=== PATIENT | female | born 1950 | race Caucasian/White ===

== ENCOUNTER 2024-05-27 08:39 | Day surgery (SDC) | payer MEDICARE ==
[~2024-05-27 08:39] MED LIST: ALPRAZolam 0.25 MG TAB PO PRN; ALPRAZolam 0.5 MG TAB PO PRN; ASPIRIN 325 MG TAB PO STA; ATORVASTATIN 80 MG TAB PO STA; NITROGLYCERIN SL TABS 0.4 MG TAB SUBLINGUAL PRN; SODIUM CHLORIDE 0.9% 1,000 ML in EMPTY BAG 1 BAG IV SCH
[2024-05-27 09:05] VITALS: RESP 18; TEMP 97.4
[2024-05-27] MEDS: SODIUM CHLORIDE 0.9% 1,000 ML IV ONE (09:07)
[2024-05-27 09:14] LABS: Basophils # (A) 0.1 k/uL (0-0.2); Basophils % (A) 1 %; Eosinophils # (A) 0.1 k/uL (0-0.7); Eosinophils % (A) 2 %; HCT 34.4 % (34.0-46.0); HGB 10.8 gm/dL (11.4-16.0); Hypochromasia Slight; Lymphocytes # (A) 1.4 k/uL (1.0-4.8); Lymphocytes % (A) 37 %; MCH 26.7 pg (25.0-35.0); MCHC 31.5 g/dL (31.0-37.0); MCV 84.9 fL (80.0-100.0); Mean Platelet Volume 8.1; Monocytes # (A) 0.4 k/uL (0-1.0); Monocytes % (A) 10 %; Neutrophils # (A) 1.7 k/uL (1.3-7.7); Neutrophils % (A) 46 %; Platelet Count 409 k/uL (150-450); RBC 4.05 m/uL (3.80-5.40); RDW 15.6 % (11.5-15.5); WBC 3.8 k/uL (3.8-10.6)
[2024-05-27] MEDS: IV FLUID CONTINUATION 1,000 ML IV ONE (09:38)
[2024-05-27] MEDS: BENZOCAINE SPRAY 1 EACH MM ONE ×2 (09:41→09:47)
[2024-05-27 09:44] LABS: African American GFR (CKD) >90 (>60 ml/min/1.73 sqM); Anion Gap 9 mmol/L; Blood Urea Nitrogen 12 mg/dL (7-17); Calcium 9.2 mg/dL (8.4-10.2); Carbon Dioxide 27 mmol/L (22-30); Chloride 104 mmol/L (98-107); Glucose 118 mg/dL (74-99); Non-African American GFR(CKD) >90 (>60 ml/min/1.73 sqM); Potassium 4.2 mmol/L (3.5-5.1); Sodium 140 mmol/L (137-145)
[2024-05-27] MEDS: fentaNYL (PF) 50 MCG/ML 2 ML AMP IVP ONE (09:49)
[2024-05-27] MEDS: MIDAZOLAM 2 MG/2 ML VIAL IVP ONE ×3 (09:49→10:38)
[2024-05-27] MEDS: LIDOCAINE 1% INJ 10MG/ML (20 ML MDV) SQ ONE (10:34)
[2024-05-27] MEDS: VERAPAMIL SYRINGE (5 MG/10 ML) INTRAARTER ONE (10:36)
[2024-05-27] MEDS: HEPARIN SODIUM 1,000 UN/ML (10ML VL) IV ONE (10:47)
[2024-05-27] MEDS: HEPARIN SODIUM,PORCINE (1 ML) 2,500 UNIT in SODIUM CHLORIDE 0.9% 250 ML IRRIGATION PRN (10:53)
[2024-05-27] MEDS: HEPARIN SODIUM,PORCINE 10,000 UNIT in SODIUM CHLORIDE 0.9% 1,000 ML IRRIGATION PRN (10:53)
[2024-05-27] MEDS: IOPAMIDOL-370 100ML BTL INJ ONE (10:53)
[2024-05-27] MEDS ORDERED: RX INFO: IV CONTRAST WAS GIVEN 1 EACH MISC MISCELLANE PRN (11:01)
--- NOTE | 2024-05-27 13:58 | CC ---
CARDIAC CATHETERIZATION REPORT INDICATION: Shortness of breath in a patient with mitral regurgitation and aortic stenosis. PROCEDURE NOTE: After obtaining informed consent, left heart catheterization and coronary angiogram were performed via the right radial artery using standard Catalino catheters. The patient tolerated the procedure well without any obvious immediate complications. A TR band was used for hemostasis. Total sedation time was 20 minutes. Right radial artery access was obtained using Seldinger technique, 6-Divehi sheath was placed. Catheters and wires were floated into the ascending aorta under fluoroscopic guidance. The patient received verapamil and heparin per protocol. FINDINGS: 1. Right coronary artery: Right coronary artery is a large dominant vessel that shows mild nonobstructive CAD. 2. Left main coronary artery is a short vessel, divides into left anterior descending coronary artery and circumflex coronary artery. Circumflex coronary artery and its branches are free of significant stenosis. LAD shows 30% to 40% stenosis in the proximal portion. CONCLUSION: Mild nonobstructive CAD involving left anterior descending coronary artery. PLAN: The patient will need mitral and aortic valve replacement. I will see her back in the office and discuss these issues further and refer her to a surgeon. MMODL / IJN: [id number] /
[2024-05-27 15:08] VITALS: BP 139/66; PULSE 52
--- NOTE | 2024-05-27 23:26 | ECHOT ---
TRANSESOPHAGEAL ECHOCARDIOGRAM INDICATION: Aortic stenosis, mitral stenosis, and regurgitation. PROCEDURE NOTE: After obtaining informed consent, transesophageal echocardiogram was performed in left lateral position using an Omniplane probe. Local and IV sedation were obtained using 2 mg of Versed and 25 mcg of fentanyl. The patient tolerated the procedure well without any obvious immediate complications. FINDINGS: 1. Aortic valve is heavily calcified with severe restriction in leaflet mobility, probably seems to be a tricuspid aortic valve with a calculated valve area by planimetry of 0.7 squared cm consistent with severe aortic stenosis. Ascending aorta measures normally. Aortic root measures normal. 2. Mitral valve shows severe mitral annular calcification, especially the posterior mitral valve. Mitral valve leaflets are also thickened and calcified. There is severe predominantly central mitral regurgitation and there is moderate mitral stenosis. The mean gradient across the mitral valve is around 8 mm. There is mild to moderate tricuspid regurgitation noted. There is no evidence of lfok-cy-abbrk shunt by color-flow Doppler or [id number] shunt by agitated saline contrast study. 3. Left atrium appears enlarged. 4. Left ventricle has normal size and systolic function. 5. Right atrium and right ventricle seem within normal limits. CONCLUSIONS: 1. Severe aortic stenosis involving a heavily calcified aortic valve. 2. Severe mitral regurgitation with mild to moderate mitral stenosis. 3. Mild pulmonary hypertension with moderate mitral regurgitation. PLAN: The patient will undergo cardiac catheterization and will be referred for aortic and mitral valve replacements. MMODL / IJN: [id number] /
== END 2024-05-27 15:08 | disposition home or self-care (01) ==
LOC: CATHCVL 08:39
PROVIDERS: ATTEND Internal Medicine Cardiovascular Disease
DX: I08.0 Rheumatic disorders of both mitral and aortic valves (principal); I25.10 Atherosclerotic heart disease of native coronary artery without angina pectoris; I27.20 Pulmonary hypertension, unspecified; I10 Essential (primary) hypertension; F17.210 Nicotine dependence, cigarettes, uncomplicated; Z95.2 Presence of prosthetic heart valve; Z79.82 Long term (current) use of aspirin; Z79.890 Hormone replacement therapy; Z79.899 Other long term (current) drug therapy
CPT/HCPCS: 93312; 93320; 93325; 80048; 85025; 93458; J2250; J1644 ×3; J2003; J3010; Q9967; 93454